=== PATIENT | male | born 1965 | race Two or more races ===

== ENCOUNTER → 2024-06-17 | Outpatient (CLI) | payer MEDICAID, SELFPAY | END | disposition home or self-care (01) | LOC: COPL 07:26 → SLDO 07:30 → COPL 09:36 | PROVIDERS: PCP Registered Nurse; Referring Provider Registered Nurse; Visit Provider Registered Nurse | DX: Z00.00 Encounter for general adult medical examination without abnormal findings (principal); Z12.11 Encounter for screening for malignant neoplasm of colon | CPT/HCPCS: 82274; G0328 ==